=== PATIENT | female | born 1960 | race Caucasian/White ===

== ENCOUNTER 2025-04-15 19:09 | Emergency (ER) | payer BC | END 2025-04-15 22:17 | disposition home or self-care (01) | LOC: ERS 19:09 | DX: S61.251A Open bite of left index finger without damage to nail, initial encounter (principal); E11.9 Type 2 diabetes mellitus without complications; W55.01XA Bitten by cat, initial encounter; Y93.89 Activity, other specified; Y92.410 Unspecified street and highway as the place of occurrence of the external cause | CPT/HCPCS: 99282 ==